=== PATIENT | female | born 1940 | race Asian ===

== ENCOUNTER 2019-06-30 14:30 | Emergency (ER) | payer MEDICARE, OTHER ==
[~2019-06-30] VITALS: Ht 149.9 cm; Wt 62.6 kg
[2019-06-30] MEDS ORDERED: ACETAMINOPHEN ES 500 MG TABLET ONE (16:33)
[2019-06-30] MEDS ORDERED: HYDROCODONE/APAP 5-325MG TABLET PO ONE (16:45)
--- NOTE | 2019-06-30 16:55 | NUR ---
Patient discharged to home in stable conditon and slow steady gait. Written and verbal after care instructions given to patient and family. Patient and family verbalized understanding & compliance of instructions.
== END 2019-06-30 16:57 | disposition home or self-care (01) ==
LOC: ER 14:30
DX: S93.402A Sprain of unspecified ligament of left ankle, initial encounter (principal); X58.XXXA Exposure to other specified factors, initial encounter; Y93.89 Activity, other specified; Y92.89 Other specified places as the place of occurrence of the external cause; Y99.8 Other external cause status
CPT/HCPCS: 73610; A4663; A9150

== ENCOUNTER 2019-11-26 14:29 | Emergency (ER) | payer MEDICARE ==
[~2019-11-26] VITALS: Ht 152.4 cm; Wt 60.8 kg
[2019-11-26] MEDS ORDERED: IBUPROFEN 600 MG TABLET ONE (16:13)
[2019-11-26] MEDS ORDERED: IBUPROFEN 600 MG TABLET PO ONE (16:15)
--- NOTE | 2019-11-26 16:31 | NUR ---
Patient discharged to home in stable condition. Written and verbal after care instructions given. Patient verbalizes understanding of instructions. Stressed follow up or return to ER for worsening s/s. Pt left ER with steady gait, accompained by daughter.
[2019-11-26 16:32] VITALS: BP 144/80
== END 2019-11-26 16:32 | disposition home or self-care (01) ==
LOC: ER 14:30
DX: M46.1 Sacroiliitis, not elsewhere classified (principal); M47.897 Other spondylosis, lumbosacral region; M51.37 Other intervertebral disc degeneration, lumbosacral region; I10 Essential (primary) hypertension; G89.29 Other chronic pain; M19.90 Unspecified osteoarthritis, unspecified site
CPT/HCPCS: 72100; 72170; 73502; A4663

== ENCOUNTER 2020-09-27 16:37 | Emergency (ER) | payer BC, MEDICARE ==
[~2020-09-27] VITALS: Ht 152.4 cm; Wt 60.3 kg
--- NOTE | 2020-09-27 16:47 | NUR ---
PT IS IN ROOM #2A. DR DE LA PAZ EVALUATED THE PT.
[2020-09-27 17:24] LABS: BASOPHILS % (AUTO) 0.3 % (0.0-2.0); EOSINOPHILS # (AUTO) 0.1 K/uL (0.0-0.7); EOSINOPHILS % (AUTO) 1.1 % (0.0-7.0); HEMATOCRIT 38.6 % (31.2-41.9); HEMOGLOBIN 13.1 g/dL (10.9-14.3); MEAN CORPUSCULAR HEMOGLOBIN 32.3 uug (24.7-32.8); MEAN CORPUSCULAR HGB CONC 34 g/dL (32.3-35.6); MEAN CORPUSCULAR VOLUME 95.3 fL (75.5-95.3); MONOCYTES # (AUTO) 0.4 K/uL (2.0-10.0); NEUTROPHILS # (AUTO) 5.5 K/uL (1.8-8.9); NEUTROPHILS % (AUTO) 68.6 % (38.5-71.5); PLATELET COUNT (AUTO) 287 K/uL (179-408); RED BLOOD CELL COUNT(AUTO) 4.06 MIL/uL (3.63-4.92); WHITE BLOOD COUNT (AUTO) 8.1 K/uL (3.8-11.8)
[2020-09-27] MEDS ORDERED: CEPH500T PO (18:07)
[2020-09-27] MEDS ORDERED: NAPR-1192 PO (18:08)
[2020-09-27 18:40] VITALS: BP 136/81
--- NOTE | 2020-09-27 18:40 | NUR ---
PT WAS D/C'd TO HOME. D/C INS TRUCTIONS GIVEN TO THE PT BY DR DE LA PAZ.
== END 2020-09-27 18:41 | disposition home or self-care (01) ==
LOC: ER 16:38
DX: L03.032 Cellulitis of left toe (principal); M19.90 Unspecified osteoarthritis, unspecified site; I10 Essential (primary) hypertension
CPT/HCPCS: 36415; 73660; 85025; 85651; 87040; A4663

== ENCOUNTER 2021-03-13 17:12 | Emergency (ER) | payer BC ==
[~2021-03-13] VITALS: Ht 152.4 cm; Wt 61.2 kg
[~2021-03-13 17:12] MED LIST: NAPR-1192 PO
[2021-03-13 18:00] LABS: HEMATOCRIT 37.8 % (31.2-41.9); MEAN CORPUSCULAR HEMOGLOBIN 32.5 uug (24.7-32.8); PLATELET COUNT (AUTO) 288 K/uL (179-408)
[2021-03-13 18:02] LABS: CREATININE 1.1 mg/dL (0.6-1.3); POTASSIUM 3.8 mmol/L (3.5-5.1)
[2021-03-13 18:08] LABS: BILIRUBIN,DIRECT 0.1 mg/dL (0.0-0.2); BILIRUBIN,TOTAL 0.4 mg/dL (0.2-1.0); TOTAL PROTEIN, SERUM 7.3 g/dL (6.4-8.2)
[2021-03-13] MEDS ORDERED: IV NORMAL SALINE 250 ML IV ONE (18:21)
[2021-03-13] MEDS ORDERED: IOHEXOL 300MG/ML 100 ML INFUS..BTL ONE (18:21)
[2021-03-13] MEDS ORDERED: SWABABLE VALVE TRANSFER SET EA MC ONE (18:21)
--- NOTE | 2021-03-13 18:55 | NUR ---
1815: [employer] assumes care, 1st contact with patient, AOx4, calm & breathing easily. Bedside ultrasound in progress, denies any pains. Patient's daughter who works here at [facility] is at bedside. 185: IV line inserted, for CT scan at this time.
--- NOTE | 2021-03-13 19:12 | NUR ---
Pt taken down for CT.
--- NOTE | 2021-03-13 19:25 | NUR ---
PT RETURNED FROM CT.
[2021-03-13 20:05] LABS: *BILIRUBIN,URIN NEGATIVE (NEGATIVE); *BLOOD, URINE 2+ (NEGATIVE); *CLARITY,URINE CLEAR (CLEAR); *COLOR,URINE YELLOW (YELLOW); *KETONES,URINE NEGATIVE (NEGATIVE); *URINE HCG, QUAL NEGATIVE (NEGATIVE); *UROBILINOGEN,URINE 0.2 E.U./dl (NORMAL); LEUKOCYTE ESTERASE ,URINE NEGATIVE (NEGATIVE); NITRITE, URINE NEGATIVE (NEGATIVE); UGLUCOSE NEGATIVE (NEGATIVE)
[2021-03-13 20:20] LABS: BACTERIA,URINE NONE SEEN /HPF (NONE SEEN); SQUAMOUS EPITHELIAL CELL,UR FEW /HPF (NONE SEEN); URINE AMORPHOUS URATE FEW /HPF
--- NOTE | 2021-03-13 21:31 | NUR ---
Patient discharged to home in stable condition. A/O x4, no SOB or labored breathing, afebrile. Denies any pain/discomfort at this time. Clear speech, complete sentences. Written and verbal after care instructions given. Patient verbalizes understanding of instructions. Stressed follow up or return to ER for worsening s/s. Steady gait. Accompanied by daughter.
[2021-03-13 21:32] VITALS: BP 148/82
== END 2021-03-13 21:28 | disposition home or self-care (01) ==
LOC: ER 17:12
DX: N95.0 Postmenopausal bleeding (principal); R10.2 Pelvic and perineal pain; I10 Essential (primary) hypertension; M19.90 Unspecified osteoarthritis, unspecified site
CPT/HCPCS: 36415; 74177; 76856; 80048; 80076; 81001; 84703; 85025; 99285; Q9967; A4663; J7050

== ENCOUNTER 2024-07-15 15:58 | Emergency (ER) | payer BC, MEDICAID ==
[~2024-07-15] VITALS: Ht 152.4 cm; Wt 63.5 kg
[2024-07-15] MEDS ORDERED: INDO50CA92 PO (18:21)
[2024-07-15] MEDS ORDERED: ONDANSETRON ODT 4 MG TAB.RAPDIS ONE (18:26)
[2024-07-15] MEDS ORDERED: KETOROLAC TROMETHAMINE 30 MG INJ ONE (18:26)
[2024-07-15] MEDS ORDERED: HYDROMORPHONE 1 MG/1 ML DISP.SYRIN ONE (18:26)
[2024-07-15 18:34] LABS: BASOPHILS % (AUTO) 0.4 % (0.0-2.0); EOSINOPHILS # (AUTO) 0.1 K/uL (0.0-0.7); EOSINOPHILS % (AUTO) 0.5 % (0.0-7.0); HEMATOCRIT 35.9 % (31.2-41.9); HEMOGLOBIN 12.3 g/dL (10.9-14.3); LYMPHOCYTES # (AUTO) 2.1 K/uL (0.8-4.8); LYMPHOCYTES % (AUTO) 19.5 % (20.5-51.5); MEAN CORPUSCULAR HEMOGLOBIN 32.4 uug (24.7-32.8); MEAN CORPUSCULAR HGB CONC 34 g/dL (32.3-35.6); MEAN CORPUSCULAR VOLUME 94.5 fL (75.5-95.3); MONOCYTES # (AUTO) 1.2 K/uL (0.1-1.30); MONOCYTES % (AUTO) 11.6 % (0.0-11.0); NEUTROPHILS # (AUTO) 7.3 K/uL (1.8-8.9); PLATELET COUNT (AUTO) 275 K/uL (179-408); RED CELL DISTRIBUTION WIDTH 13.4 % (12.3-17.7); WHITE BLOOD COUNT (AUTO) 10.7 K/uL (3.8-11.8)
[2024-07-15] MEDS: KETOROLAC TROMETHAMINE 30 MG INJ IM ONE (18:37)
[2024-07-15] MEDS: HYDROMORPHONE 1 MG/1 ML DISP.SYRIN IM ONE (18:37)
[2024-07-15] MEDS: ONDANSETRON ODT 4 MG TAB.RAPDIS SL ONE (18:37)
[2024-07-15 18:46] LABS: CALCIUM 8.6 mg/dL (8.5-10.1); CARBON DIOXIDE 29 mmol/L (21-32); CHLORIDE 100 mmol/L (98-107); CREATININE 0.9 mg/dL (0.6-1.3); GLUCOSE 102 mg/dL (74-106); POTASSIUM 3.7 mmol/L (3.5-5.1); SODIUM SERUM 139 mmol/L (136-145); UREA NITROGEN, BLOOD 16 mg/dL (7-18); URIC ACID 4.4 mg/dL (2.6-6.0)
[2024-07-15 18:49] LABS: DIFFERENTIAL COMMENT 1
[2024-07-15 19:19] VITALS: BP 134/75; O2SAT 98
== END 2024-07-15 19:20 | disposition home or self-care (01) ==
LOC: ER 15:58
DX: M10.9 Gout, unspecified (principal); M19.90 Unspecified osteoarthritis, unspecified site; Z79.899 Other long term (current) drug therapy
CPT/HCPCS: 99284; 80048; 84550; 85025; 36415; 73600; 96372 ×2; J1885; J1171; A4606; A4663; Q0162

== ENCOUNTER 2024-07-31 18:07 | Emergency (ER) | payer BC, MEDICAID ==
[~2024-07-31] VITALS: Ht 152.4 cm; Wt 63.5 kg
[~2024-07-31 18:07] MED LIST changes: +INDO50CA92 PO
[2024-07-31] MEDS ORDERED: SULF1TAB48 PO (20:17)
[2024-07-31] MEDS ORDERED: CEPH500T PO (20:17)
[2024-07-31] MEDS: CEFTRIAXONE 1 G VIAL IM ONE (20:42)
[2024-07-31] MEDS: SULFAMETH/TRIMETH 800/160 MG TABLET PO ONE (20:42)
[2024-07-31] MEDS ORDERED: SULFAMETH/TRIMETH 800/160 MG TABLET ONE (20:42)
[2024-07-31] MEDS ORDERED: CEFTRIAXONE 1 G VIAL ONE (20:42)
[2024-07-31 21:10] VITALS: BP 136/78; O2SAT 99
== END 2024-07-31 21:11 | disposition home or self-care (01) ==
LOC: ER 18:07
DX: L03.032 Cellulitis of left toe (principal); M19.90 Unspecified osteoarthritis, unspecified site
CPT/HCPCS: 99283; 73660; 96372; J0696; A4606; A4663